=== PATIENT | male | born 1985 | race American Indian/Alaskan Native ===

== ENCOUNTER 2019-03-14 14:54 | Emergency (ER) | payer MEDICAID ==
[2019-03-14] MEDS ORDERED: IBUPROFEN PO ONE ×3 (15:25→15:30)
--- NOTE | 2019-03-14 15:25 | Event Note ---
ED Screening Note ED Screening Note: pt presents for cough that began a couple days ago +mucus production +subjective fever took tylenol at 12:30 PM no rhinorrhea +congestion no PMHx no allergies to meds non smoker occ drinker no drug use This initial assessment/diagnostic orders/clinical plan/treatment(s) is/are subject to change based on patients health status, clinical progression and re- assessment by fellow clinical providers in the ED. Further treatment and workup at subsequent clinical providers discretion. Patient/guardian urged not to elope from the ED as their condition may be serious if not clinically assessed and managed. Initial orders include: CXR given motrin in triage
--- NOTE | 2019-03-14 16:43 | XRay Report ---
PROCEDURE: XR CHEST ROUTINE 2V TECHNIQUE: PA and lateral chest radiographs were obtained. HISTORY: cough, fever COMPARISONS: None. FINDINGS: Heart: Normal. Mediastinum/Vessels: Normal. Lungs/Pleural space: Normal. Bony thorax: No acute osseous abnormality. S-shaped scoliosis of the thoracolumbar spine is noted IMPRESSION: No acute cardiopulmonary process seen. This document is electronically signed by Maria Meza MD., March 14 2019 04:41:12 PM ET
--- NOTE | 2019-03-14 18:18 | Emergency Department Report ---
- General Chief Complaint: Upper Respiratory Infection Stated Complaint: FEVER/COUGH Time Seen by Provider: 03/14/19 15:23 Source: patient Mode of arrival: Ambulatory Limitations: No Limitations - History of Present Illness Initial Comments: Patient is a 33-year-old -Chinese male [employer] worker hx of bronchitis and obesity or cough fever or rhinorrhea nocturnal wheezing for 3 days states has been working cold room is exacerbated bronchitis is no shortness of breath no chest pain no nausea vomiting no dizziness or lightheadedness no activity intolerance symptoms are exacerbated by viral and exposure systems are relieved by rest MD Complaint: fever, cough, sore throat, rhinorrhea, nasal congestion, other (wheezing ) Onset/Timin -: days(s) Severity: moderate Severity scale (0 -10): 5 Consistency: intermittent Improves With: rest Worsens With: activity, other (environmental exposure ) Associated Symptoms: rhinorrhea, nasal congestion, sore throat, cough, ear pain Treatments Prior to Arrival: none - Related Data Previous Rx's Medication Instructions Recorded Last Taken Type ALBUTEROL Inhaler (OR & NICU) 2 puff IH QID PRN #1 inhalation 03/14/19 Unknown Rx [ProAir HFA Inhaler] Azithromycin [Zithromax Z-EMPERATRIZ] 250 mg PO DAILY #6 tab 03/14/19 Unknown Rx Benzonatate [Tessalon Perles] 100 mg PO Q8HR PRN #30 capsule 03/14/19 Unknown Rx Ibuprofen [Motrin 800 MG tab] 800 mg PO Q8HR PRN #30 tablet 03/14/19 Unknown Rx predniSONE [Deltasone] 40 mg PO DAILY 5 Days #10 tablet 03/14/19 Unknown Rx Allergies Allergy/AdvReac Type Severity Reaction Status Date / Time No Known Allergies Allergy Verified 03/14/19 15:26 ED Review of Systems ROS: Stated complaint: FEVER/COUGH Other details as noted in HPI Constitutional: denies: chills, fever Eyes: denies: eye pain, eye discharge, vision change ENT: ear pain, throat pain, congestion Respiratory: cough, wheezing. denies: orthopnea, shortness of breath, SOB with exertion, SOB at rest Cardiovascular: denies: chest pain, palpitations Endocrine: no symptoms reported Gastrointestinal: denies: abdominal pain, nausea, vomiting, diarrhea Genitourinary: denies: urgency, dysuria Musculoskeletal: denies: back pain, joint swelling, arthralgia Skin: as per HPI Neurological: denies: headache, weakness, paresthesias Psychiatric: denies: anxiety, depression Hematological/Lymphatic: denies: easy bleeding, easy bruising ED Past Medical Hx - Past Medical History Previous Medical History?: Yes Additional medical history: seizures as a child. - Surgical History Past Surgical History?: Yes Additional Surgical History: Tonsilectomy and adenoidectomy - Social History Smoking Status: Never Smoker Substance Use Type: None - Medications Home Medications: Home Medications Medication Instructions Recorded Confirmed Last Taken Type ALBUTEROL Inhaler (OR & NICU) 2 puff IH QID PRN #1 inhalation 03/14/19 Unknown Rx [ProAir HFA Inhaler] Azithromycin [Zithromax Z-EMPERATRIZ] 250 mg PO DAILY #6 tab 03/14/19 Unknown Rx Benzonatate [Tessalon Perles] 100 mg PO Q8HR PRN #30 capsule 03/14/19 Unknown Rx Ibuprofen [Motrin 800 MG tab] 800 mg PO Q8HR PRN #30 tablet 03/14/19 Unknown Rx predniSONE [Deltasone] 40 mg PO DAILY 5 Days #10 tablet 03/14/19 Unknown Rx ED Physical Exam - General Limitations: No Limitations General appearance: alert, in no apparent distress - Head Head exam: Present: atraumatic, normocephalic - Eye Eye exam: Present: normal appearance, PERRL, EOMI Pupils: Present: normal accommodation - ENT ENT exam: Present: mucous membranes moist - Expanded ENT Exam Expanded Ear exam: Present: normal external inspection TM/Canal exam: Erythema: Right TM, Left TM, Canal Tenderness: Right TM, Left TM Mouth exam: Absent: trismus Throat exam: Positive: tonsillar erythema, tonsillomegaly, other (uvul midline no exudate no lesions no stridor no swelling ). Negative: tonsillar exudate, R peritonsillar mass, L peritonsillar mass - Neck Neck exam: Present: normal inspection, full ROM. Absent: tenderness, lymph adenopathy - Expanded Neck Exam Expanded Neck exam: Absent: tenderness - Respiratory Respiratory exam: Present: normal lung sounds bilaterally, wheezes (mild exp wheezing ). Absent: respiratory distress, stridor, chest wall tenderness, prolonged expiratory - Cardiovascular Cardiovascular Exam: Present: regular rate, normal rhythm, normal heart sounds. Absent: systolic murmur, diastolic murmur, rubs, gallop - GI/Abdominal GI/Abdominal exam: Present: soft, normal bowel sounds. Absent: tenderness, bruit, hernia - Rectal Rectal exam: Present: deferred - Extremities Exam Extremities exam: Present: normal inspection, full ROM, normal capillary refill. Absent: tenderness, pedal edema, joint swelling, calf tenderness - Back Exam Back exam: Present: normal inspection, full ROM. Absent: tenderness, rash noted - Neurological Exam Neurological exam: Present: alert, oriented X3, CN II-XII intact, normal gait, reflexes normal - Psychiatric Psychiatric exam: Present: normal affect, normal mood ED Course Vital Signs 03/14/19 15:24 Temperature 100.1 F H Pulse Rate 92 H Respiratory 20 Rate Blood Pressure 148/82 [Left] O2 Sat by Pulse 96 Oximetry ED Medical Decision Making - Radiology Data Radiology results: report reviewed, image reviewed Ordering Physician: JING TAI Date of Service: 03/14/19 Procedure(s): XR chest routine 2V Accession Number(s): [id number] cc: JING TAI Fluoro Time In Minutes: PROCEDURE: XR CHEST ROUTINE 2V TECHNIQUE: PA and lateral chest radiographs were obtained. HISTORY: cough, fever COMPARISONS: None. FINDINGS: Heart: Normal. Mediastinum/Vessels: Normal. Lungs/Pleural space: Normal. Bony thorax: No acute osseous abnormality. S-shaped scoliosis of the thoracolumbar spine is noted IMPRESSION: No acute cardiopulmonary process seen. This document is electronically signed by Maria Meza MD., March 14 2019 04:41:12 PM ET Transcribed By: [facility] Dictated By: MARIA MEZA MD Electronically Authenticated By: MARIA MEZA MD Signed Date/Time: 03/14/19 1643 DD/ 1553 TD/TT: 03/14/19 1553 - Medical Decision Making this is bronchitis , no resp distress , plan: albuterol , prednisone, ibuprofen, tessalon, azithromycin , pt verbalized agreement and understanding with discharge plan pt is currently a/o x 3 ambulatory with steady gait nad, declines neb tx in ed. resp or even non labored mild exp wheezes at this time. Critical care attestation.: If time is entered above; I have spent that time in minutes in the direct care of this critically ill patient, excluding procedure time. ED Disposition Clinical Impression: Bronchitis Disposition: DC-01 TO HOME OR SELFCARE Is pt being admited?: No Does the pt Need Aspirin: No Condition: Stable Instructions: Acute Bronchitis (ED), Upper Respiratory Infection (ED) Prescriptions: predniSONE [Deltasone] 40 mg PO DAILY 5 Days #10 tablet Ibuprofen [Motrin 800 MG tab] 800 mg PO Q8HR PRN #30 tablet PRN Reason: pain fever ALBUTEROL Inhaler (OR & NICU) [ProAir HFA Inhaler] 2 puff IH QID PRN #1 inhalation PRN Reason: Shortness Of Breath Benzonatate [Tessalon Perles] 100 mg PO Q8HR PRN #30 capsule PRN Reason: cough Azithromycin [Zithromax Z-EMPERATRIZ] 250 mg PO DAILY #6 tab Referrals: ANTHONY KUHN [Other] - 3-5 Days Forms: Work/School Release Form(ED) Time of Disposition: 18:52
[2019-03-14 19:14] VITALS: BP 137/82
== END 2019-03-14 19:00 | disposition home or self-care (01) ==
LOC: EEVIPCON 14:54 → ED 14:54
DX: J40 Bronchitis, not specified as acute or chronic (principal)
CPT/HCPCS: 71046